=== PATIENT | male | born 2000 | race Two or more races ===

== ENCOUNTER 2022-12-30 21:54 | Inpatient (IN) | payer OTHER, MEDICAID ==
[~2022-12-30] VITALS: Ht 182.9 cm; Wt 81.6 kg
[2022-12-30] MEDS: MAGNESIUM SULFATE 1GM/100ML 100 ML IV SCH ×2 (22:00→23:00)
[2022-12-30] MEDS ORDERED: ALBUTEROL SULF 2.5 MG/0.5ML(0.5%) NEB SOLN NEB ONE (22:00)
[2022-12-30] MEDS ORDERED: EPINEPHrine HCL 1 MG/1 ML AMP SC ONE (22:00)
[2022-12-30] MEDS ORDERED: TERBUTALINE SULFATE 1 MG/ML 1ML VIAL SC ONE (22:00)
[2022-12-30] MEDS ORDERED: FAMOTIDINE (10MG/ML) 2ML VL IV ONE ×2 (22:00→22:10)
[2022-12-30] MEDS ORDERED: diphenhdrAMINE HCL 50 MG/1 ML VL IV ONE (22:00)
[2022-12-30] MEDS ORDERED: methylPREDNISolone SOD SUCC 125 MG/2 ML VL IV ONE (22:00)
[2022-12-30] MEDS ORDERED: IPRATROPIUM BROM 0.5 MG/2.5ML INH SOL NEB ONE (22:00)
[2022-12-30] MEDS ORDERED: MAGNESIUM SULFATE 1GM/100ML 200 ML IV ONE (22:09)
[2022-12-30] MEDS ORDERED: methylPREDNISolone SOD SUCC 40 MG/ML VL ONE (22:09)
[2022-12-30 22:39] LABS: Basophils # (auto) 0 10 ^3/uL (0-0.2); Basophils % (auto) 0.3 % (0.0-2.0); Eosinophils # (auto) 0.3 10 ^3/uL (0-0.8); Eosinophils % (auto) 3.6 % (0.0-7.0); Lymphocytes # (auto) 3.3 10 ^3/uL (0.4-5.4); Lymphocytes % (auto) 35.3 % (10.0-50.0); Mean Corpuscular Hemoglobin 30.8 pg (28.0-32.0); Mean Corpuscular Hgb Conc. 33.2 g/dL (32.0-36.0); Mean Corpuscular Volume 92.7 fL (80.0-100.0); Monocytes # (auto) 0.2 10 ^3/uL (0-1.3); Monocytes % (auto) 1.8 % (0.0-12.0); Neutrophils # (auto) 5.5 10 ^3/uL (1.6-8.6); Nucleated Red Blood Cells % 0.3 %; Red Blood Cells 5.51 10^6/uL (4.5-5.90); Red Cell Distribution Width 14.1 % (11.8-14.3); White Blood Cell 9.4 10^3/uL (4.4-10.8)
[2022-12-30 22:53] LABS: Albumin 3.8 g/dL (3.4-5.0); Calcium 8.6 mg/dL (8.5-10.1); Magnesium 2.2 mg/dL (1.6-2.6); Potassium 3.3 mmol/L (3.5-5.1)
[2022-12-30 22:56] LABS: BUN/Creatinine Ratio 15.4 (10.0-20.0); Bilirubin, Total 0.3 mg/dL (0.2-1.0)
[2022-12-31] MEDS ORDERED: ONDANSETRON HCL 4 MG/2 ML VIAL IV PRN (04:00)
[2022-12-31] MEDS ORDERED: ACETAMINOPHEN 325 MG TAB PO PRN (04:00)
[2022-12-31] MEDS ORDERED: NITROGLYCERIN 0.4 MG SL TAB SL PRN (04:00)
[2022-12-31] MEDS ORDERED: diphenhdrAMINE HCL 25 MG CAP PO PRN (04:00)
[2022-12-31] MEDS ORDERED: MORPHINE SULFATE INJ 2 MG/ml SYRG IV PRN (04:00)
[2022-12-31] MEDS ORDERED: DexAMETHasone SOD PHOS 10MG/1ML VIAL INJ IV ONE (09:00)
[2022-12-31] MEDS ORDERED: FAMOTIDINE (10MG/ML) 2ML VL IV SCH (10:00)
[2022-12-31] MEDS ORDERED: methylPREDNISolone SOD SUCC 40 MG/ML VL IV SCH (10:00)
[2022-12-31 13:02] VITALS: BP 118/67
== END 2022-12-31 13:10 | disposition home or self-care (01) | DRG 916 ==
LOC: EDBD 21:54 → ER 22:00 → TELE 12-31 03:58
PROVIDERS: ADMIT Nurse Practitioner; ATTEND Family Medicine
DX: T78.05XA Anaphylactic reaction due to tree nuts and seeds, initial encounter (principal); L29.9 Pruritus, unspecified; R06.03 Acute respiratory distress; Y84.8 Other medical procedures as the cause of abnormal reaction of the patient, or of later complication, without mention of misadventure at the time of the procedure; Y82.8 Other medical devices associated with adverse incidents; Z91.010 Allergy to peanuts; Z91.018 Allergy to other foods; Y92.89 Other specified places as the place of occurrence of the external cause
CPT/HCPCS: 36415; 71045; 80053; 83735; 85025; 94640; 96365; 96366; 96372; 96375; 99291; G0378; J0171; J1100; J3490

== ENCOUNTER 2023-10-07 16:12 | Inpatient (IN) | payer BC, MEDICAID, OTHER ==
[~2023-10-07] VITALS: Ht 177.8 cm; Wt 84.0 kg
[2023-10-07] MEDS: DexAMETHasone SOD PHOS 10MG/1ML VIAL INJ IV ONE (16:39)
[2023-10-07] MEDS: IPRATROPIUM BROM 0.5 MG/2.5ML INH SOL NEB ONE ×3 (16:41→20:47)
[2023-10-07] MEDS: ALBUTEROL SULF 2.5 MG/0.5ML(0.5%) NEB SOLN NEB ONE ×3 (16:41→20:47)
[2023-10-07 17:38] LABS: Basophils # (auto) 0 10 ^3/uL (0-0.2); Basophils % (auto) 0.6 % (0.0-2.0); Eosinophils # (auto) 0.4 10 ^3/uL (0-0.8); Eosinophils % (auto) 5.2 % (0.0-7.0); Hematocrit 46.8 % (41.0-53.0); Hemoglobin 15.6 g/dL (13.5-17.5); Lymphocytes # (auto) 1.4 10 ^3/uL (0.4-5.4); Lymphocytes % (auto) 17.9 % (10.0-50.0); Mean Corpuscular Hemoglobin 30.6 pg (28.0-32.0); Mean Corpuscular Hgb Conc. 33.4 g/dL (32.0-36.0); Mean Corpuscular Volume 91.8 fL (80.0-100.0); Monocytes # (auto) 0.6 10 ^3/uL (0-1.3); Monocytes % (auto) 8.1 % (0.0-12.0); Neutrophils # (auto) 5.5 10 ^3/uL (1.6-8.6); Neutrophils % (auto) 68.2 % (37.0-80.0); Nucleated Red Blood Cells % 0.1 %; Red Cell Distribution Width 14.4 % (11.8-14.3)
[2023-10-07 19:27] LABS: COVID19 ANTIGEN SOFIA FIA NEGATIVE (NEGATIVE); Rapid Influenza A Negative (Negative); Rapid Influenza B Negative (Negative)
[2023-10-07] MEDS: IPRATROPIUM BROM 0.5 MG/2.5ML INH SOL ONE (20:48)
[2023-10-07] MEDS: ALBUTEROL SULF 2.5 MG/0.5ML(0.5%) NEB SOLN ONE (20:48)
[2023-10-07 20:50] LABS: Chloride 106 mmol/L (98-107); Potassium 3.9 mmol/L (3.5-5.1); Sodium 138 mmol/L (136-145)
[2023-10-07 20:51] LABS: Anion Gap 8 (5-15); Calcium 9.4 mg/dL (8.7-10.4); Carbon Dioxide 24 mmol/L (20-30)
[2023-10-07 20:56] LABS: BUN/Creatinine Ratio 8.8 (10.0-20.0); Blood Urea Nitrogen 8 mg/dL (9-23); Glucose 143 mg/dL (74-106)
[2023-10-07] MEDS ORDERED: ACETAMINOPHEN 325 MG TAB PO PRN (21:15)
[2023-10-07] MEDS ORDERED: DOCUSATE SOD 100 MG CAP PO PRN (21:15)
[2023-10-07] MEDS ORDERED: ONDANSETRON HCL 4 MG/2 ML VIAL IV PRN (21:15)
[2023-10-07 21:39] LABS: Lactic Acid w/Reflex 3.5 mmol/L (0.4-2.0)
[2023-10-07 23:42] LABS: Bilirubin, Total 0.4 mg/dL (0.2-1.0)
[2023-10-08] VITALS (11 sets, daily range): BP systolic 112–115; BP diastolic 60–61; PULSE 75–118; RESP 14–24; TEMP 98–98.1; O2SAT 92–100
[2023-10-08] MEDS: SODIUM CHLORIDE 0.9% 2,500 ML IV ONE (00:32)
[2023-10-08] MEDS: cefTRIAXone 1GM/50ML D5W 50 ML IV ONE (00:35)
[2023-10-08] MEDS: AZITHROMYCIN 500MG/ 250ML 250 ML IV ONE (00:58)
[2023-10-08 00:59] LABS: Lactic Acid w/Reflex 5.6 mmol/L (0.4-2.0)
[2023-10-08 05:42] LABS: Basophils # (auto) 0 10 ^3/uL (0-0.2); Basophils % (auto) 0.2 % (0.0-2.0); Eosinophils # (auto) 0 10 ^3/uL (0-0.8); Hematocrit 41.1 % (41.0-53.0); Hemoglobin 13.9 g/dL (13.5-17.5); Lymphocytes # (auto) 0.5 10 ^3/uL (0.4-5.4); Mean Corpuscular Hemoglobin 31.2 pg (28.0-32.0); Mean Corpuscular Hgb Conc. 33.8 g/dL (32.0-36.0); Mean Corpuscular Volume 92.3 fL (80.0-100.0); Monocytes # (auto) 0.7 10 ^3/uL (0-1.3); Monocytes % (auto) 7.3 % (0.0-12.0); Neutrophils # (auto) 8.2 10 ^3/uL (1.6-8.6); Neutrophils % (auto) 87.5 % (37.0-80.0); Red Blood Cells 4.46 10^6/uL (4.5-5.90); Red Cell Distribution Width 14.3 % (11.8-14.3); White Blood Cell 9.4 10^3/uL (4.4-10.8)
[2023-10-08 06:01] LABS: Alanine Aminotransferase 63 U/L (7-40); Albumin 4.3 g/dL (3.2-4.8); Alkaline Phosphatase 94 U/L (46-116); Anion Gap 6 (5-15); Aspartate Aminotransferase 26 U/L (13-40); BUN/Creatinine Ratio 10.7 (10.0-20.0); Bilirubin, Total 0.4 mg/dL (0.2-1.0); Blood Urea Nitrogen 8 mg/dL (9-23); Calcium 9.3 mg/dL (8.5-10.1); Carbon Dioxide 23 mmol/L (20-30); Chloride 109 mmol/L (98-107); Glucose 107 mg/dL (74-106); Potassium 4.5 mmol/L (3.5-5.1); Sodium 138 mmol/L (136-145)
[2023-10-08] MEDS: methylPREDNISolone SOD SUCC 40 MG/ML VL IV SCH (06:40)
[2023-10-08] MEDS: IPRATROPIUM BROM 0.5 MG/2.5ML INH SOL NEB SCH (07:14)
[2023-10-08] MEDS: ALBUTEROL SULF 2.5 MG/0.5ML(0.5%) NEB SOLN NEB SCH (07:14)
[2023-10-08 08:12] LABS: Urine WBC None Seen /hpf (0 - 3)
[2023-10-08 08:23] LABS: Urine Bacteria NONE SEEN /hpf (None Seen); Urine Blood Negative /uL (Negative); Urine Clarity Clear (Clear); Urine Color Colorless (Yellow); Urine Protein, UAD Negative (Negative); Urine Specific Gravity 1.007 (1.001-1.035); Urine Urobilinogen Normal (Negative); Urine pH 6.5 (5.0-8.0)
[2023-10-08] MEDS: cefTRIAXone 1GM/50ML D5W 50 ML IV SCH (09:00)
[2023-10-08] MEDS: AZITHROMYCIN 500MG/ 250ML 250 ML IV SCH (10:10)
[2023-10-08] MEDS ORDERED: PRED20TA2 PO (16:48)
[2023-10-08] MEDS ORDERED: AZIT-81 PO (16:48)
[2023-10-08] MEDS ORDERED: ALBUAER3 IN (16:48)
== END 2023-10-08 16:56 | disposition home or self-care (01) | DRG 189 ==
LOC: ER 16:12 → OVERFLOW 21:05
PROVIDERS: ADMIT Nurse Practitioner Family; ATTEND Nurse Practitioner Acute Care
DX: J96.01 Acute respiratory failure with hypoxia (principal); J45.901 Unspecified asthma with (acute) exacerbation; Z20.822 Contact with and (suspected) exposure to COVID-19; F17.210 Nicotine dependence, cigarettes, uncomplicated; D72.829 Elevated white blood cell count, unspecified; Z91.018 Allergy to other foods
CPT/HCPCS: 36415; 71045; 80048; 80053; 81001; 82247; 83036; 83605; 84075; 84450; 84460; 85025; 87040; 87426; 87804; 93005; 94640; 96374; G0378; J1100

== ENCOUNTER 2024-10-03 05:04 | Emergency (ER) | payer BC ==
[~2024-10-03] VITALS: Ht 180.3 cm; Wt 97.8 kg
[~2024-10-03 05:04] MED LIST: ALBUAER3 IN; AZIT-185 PO; PRED20TA2 PO
--- NOTE | 2024-10-03 05:11 | ED.PDOC ---
HPI Allergic reaction HPI Comments Pt presents to ED d/t allergic reaction. Pt ate cookies that had nuts and felt throat start to swell. Pt speaking in clear, even sentences. Airway clear, no swelling noted. Satting at 99% on room air. Pt states he took Benadryl 50mg PO, and drank 6 shots of whiskey afterwards. Pt A&O x4. VSS. Denies chest pain, difficulty breathing, shortness of breath, nausea, vomiting, difficulty swallowing Chief Complaint: Allergic Reaction Time Seen by MD: 05:07 Reviewed Notes: Nurses Notes, Medications, Allergies Allergies: Coded Allergies: Avocado (Verified Allergy, Unknown, 10/03/24) Fish Allergy (Verified Allergy, Unknown, 10/03/24) Uncoded Allergies: NUTS (Allergy, Unknown, 12/30/22) Home Meds Active Scripts Fexofenadine Hydrochloride (CAROLIN ALLERGY) 180 Mg Tab, 1 TAB PO DAILY for 10 Days, #10 TAB Prov:MALI MURRELLP 10/03/24 Famotidine (PEPCID TABLET) 20 Mg Tb, 1 TAB PO BID for 6 Days, #12 TAB Prov:MALI MURRELL 10/03/24 Methylprednisolone (Medrol Dosepak) 4 Mg Adrian, 4 MG PO UD for 6 Days, #21 TAB UAD Prov:MALI MURRELL 10/03/24 Albuterol Sulfate (VENTOLIN MDI) 90 Mcg Ih, 90 MCG IN Q4HP PRN for 30 Days, #1 INH II puff q4hrs as needed for dyspnea Prov:ANOOP ESTEVEZ PROCESS SUPERVISOR 10/08/23 Prednisone (Prednisone) 20 Mg Tab, 20 MG PO DAILY for 4 Days, #4 MG Prov:ANOOP ESTEVEZ PROCESS SUPERVISOR 10/08/23 Azithromycin (ZITHROMAX TABLET) 250 Mg Tb, 250 MG PO DAILY for 4 Days, #4 TAB Z pack unit dose #1 as directed Prov:ANOOP ESTEVEZ PROCESS SUPERVISOR 10/08/23 Information Source: Patient Past Medical History PAST MEDICAL HISTORY: Asthma Surgical History: Denies all surgeries Family History Family History: Reviewed,noncontributory to illness Social History Smoker: Non-Smoker Alcohol: Denies ETOH Use Drugs: Denies Drug Use Lives In: Home Constitutional: denies: chills, diaphoresis, fatigue, fever, malaise, sweats, weakness, others EENTM: reports: throat swelling; denies: blurred vision, double vision, ear bleeding, ear discharge, ear drainage, ear pain, ear ringing, eye pain, eye redness, hearing loss, mouth pain, mouth swelling, nasal discharge, nose bleeding, nose congestion, nose pain, photophobia, tearing, throat pain, voice changes, others Respiratory: denies: cough, hemoptysis, orthopnea, SOB at rest, shortness of breath, SOB with excertion, stridor, wheezing, others Cardiovascular: denies: chest pain, dizzy spells, diaphoresis, Dyspnea on exertion, edema, irregular heart beat, left arm pain, lightheadedness, pa lpitations, PND, syncope, others Gastrointestinal: denies: abdomen distended, abdominal pain, blood streaked bowels, constipated, diarrhea, dysphagia, difficulty swallowing, hematemesis, melena, nausea, poor appetite, poor fluid intake, rectal bleeding, rectal pain, vomiting, others Genitourinary: denies: burning, dysuria, flank pain, frequency, hematuria, incontinence, penile discharge, penile sore, pain, testicle pain, testicle swelling, urgency, others Neurological: denies: dizziness, fainting, headache, left sided numbness, left sided weakness, numbness, paresthesia, pre-existing deficit, right sided numbness, right sided weakness, seizure, speech problems, tingling, tremors, weakness, others Musculoskeletal: denies: back pain, gout, joint pain, joint swelling, muscle pain, muscle stiffness, neck pain, others Integumetry: denies: bruises, change in color, change in hair/nails, dryness, laceration, lesions, lumps, rash, wounds, others Allergic/Immunocompromised: denies: Difficulty Healing, Frequent Infections, Hives, Itching, others Hematologic/Lymphatic: denies: anemia, blood clots, easy bleeding, easy br uising, swollen glands, others Endocrine: denies: excessive hunger, excessive sweating, excessive thirst, excessive urination, flushing, intolerance to cold, intolerance to heat, unexplained weight gain, unexplained weight loss, others Psychiatric: denies: anxiety, bipolar disorder, depression, hopeless, panic disorder, schizophrenia, sleepless, suicidal, others Physical Exam General Appearance: No Apparent Distress, Normal HEENT: Normal ENT Inspection, Pharynx Normal, TMs Normal Neck: Full Range of Motion, Non-Tender Respiratory: Lungs Clear, No Accessory Muscle Use, No Respiratory Distress, Normal Breath Sounds Cardiovascular: No Edema, No JVD, No Murmur, No Gallop, Normal Peripheral Pulses, Regular Rate/Rhythm Breast Exam: Deferred Gastrointestinal: No Organomegaly, Non Tender, No Pulsatile Mass, Normal Bowel Sounds, Soft Genitalia: Deferred Pelvic: Deferred Rectal: Deferred Extremities: Normal capillary refill, Normal inspection, Normal range of motion, Non-tender, No pedal edema Musculoskeletal : Apperance: Normal Neurologic: Alert, business technology architect II-XII nml as Tested, No Motor Deficits, Normal Affect, Normal Mood, No Sensory Deficits Cerebellar Function: Normal Reflexes: Normal Skin: Dry, Normal Color, Warm Lymphatic: No Adenopathy Was a procedure done? Was a procedure done?: No Differential diagnosis (all) Differential Diagnosis: Anaphylaxis, Angioedema, Bronchospasm, Hypotension, Urticaria X-Ray, Labs, Meds, VS Vital Signs Date Time Temp Pulse Resp B/P (MAP) Pulse Ox O2 Delivery O2 Flow Rate FiO2 10/03/24 08:35 74 15 108/64 (79) 95 10/03/24 06:35 71 16 117/63 (81) 98 10/03/24 05:37 87 18 99 Room Air 10/03/24 05:37 97.5 87 18 119/89 (99) 99 97.5 10/03/24 05:21 18 99 Room Air* 0 21 10/03/24 05:08 97.5 87 18 119/89 (99) 99 Current Medications Medications (Trade) Dose Ordered Sig/Vj Route Start Time Stop Time Status Last Admin Methylprednisolone Sodium Succinate (Solu Medrol) 125 mg ONCE ONCE IV 10/03/24 05:15 10/03/24 05:16 DC 10/03/24 05:27 Sodium Chloride 1,000 ml @ 1,000 mls/hr Q1H ONCE IV 10/03/24 05:15 10/03/24 06:14 DC 10/03/24 05:27 Famotidine (Pepcid Injection) 20 mg ONCE ONCE IV 10/03/24 05:15 10/03/24 05:16 DC 10/03/24 05:28 X-Ray, Labs, Meds, VS Comment Patient states took 50 mg of Benadryl prior to arrival. IV Hep-Lock placed patient given Pepcid 20 mg IV push and Solu-Medrol 125 mg IV push. Normal Saline 1000 mL bolus started. On revaluation patient reported significant improvement. DC in stable condition Time of 1ST Reevaluation: 07:00 Reevaluation 1ST: Improved Patient Education/Counseling: Diagnosis, Treatment Family Education/Counseling: Diagnosis, Treatment Departure 1 Departure Time of Disposition: 07:27 Impression: Primary Impression: Allergic reaction Qualified Codes: T78.40XA - Allergy, unspecified, initial encounter Disposition: HOME / SELF CARE / HOMELESS Condition: Stable e-Prescriptions Fexofenadine Hydrochloride (CAROLIN ALLERGY) 180 Mg Tab 1 TAB PO DAILY for 10 Days, #10 TAB Prov: MALI MURRELL 10/03/24 Famotidine (PEPCID TABLET) 20 Mg Tb 1 TAB PO BID for 6 Days, #12 TAB Prov: MALI MURRELL 10/03/24 Methylprednisolone (Medrol Dosepak) 4 Mg Adrian 4 MG PO UD for 6 Days, #21 TAB UAD Prov: MALI MURRELL 10/03/24 Discharged With: Friend Critical Care Note Critical Care Time?: No Stability Stability form required: No Heart Score Heart Score: Heart Score Response (Comments) Value History N/A 0 EKG N/A 0 Age N/A 0 Risk Factors N/A 0 Troponin N/A 0 Total 0 MALI MURRELL Oct 03, 2024 05:11 VIKTOR PETER NP Oct 03, 2024 07:27
[2024-10-03] MEDS ORDERED: diphenhdrAMINE HCL 50 MG/1 ML VL IV ONE (05:15)
[2024-10-03] MEDS: methylPREDNISolone SOD SUCC 125 MG/2 ML VL IV ONE (05:27)
[2024-10-03] MEDS: SODIUM CHLORIDE 0.9% 1,000 ML IV ONE (05:27)
[2024-10-03] MEDS: FAMOTIDINE (10MG/ML) 2ML VL IV ONE (05:28)
[2024-10-03 05:37] VITALS: TEMP 97.5
[2024-10-03] MEDS ORDERED: FEXO-42 PO (05:41)
[2024-10-03] MEDS ORDERED: FAMO20TA10 PO (05:41)
[2024-10-03] MEDS ORDERED: METH4PAK PO (05:41)
[2024-10-03 08:35] VITALS: BP 108/64; PULSE 74; RESP 15; O2SAT 95
== END 2024-10-03 08:50 | disposition home or self-care (01) ==
LOC: ER 05:04
DX: T78.49XA Other allergy, initial encounter (principal); J45.909 Unspecified asthma, uncomplicated; Z91.013 Allergy to seafood; Z88.8 Allergy status to other drugs, medicaments and biological substances; X58.XXXA Exposure to other specified factors, initial encounter
CPT/HCPCS: 96361; 96374; 96375; 99285; J2919; J3490; J7030